=== PATIENT | female | born 1970 | race Caucasian/White ===

== ENCOUNTER 2017-11-13 23:00 | Emergency (ER) | payer MEDICAID ==
[2017-11-14] MEDS ORDERED: NORMAL SALINE 1000 ML 1,000 ML IV ONE (00:49)
[2017-11-14] MEDS ORDERED: MORPHINE SULFATE 10 MG/ML INJ IV ONE (00:49)
[2017-11-14] MEDS ORDERED: ONDANSETRON HCL INJ/PF 4 MG/2 ML SDV IV ONE (00:49)
--- NOTE | 2017-11-14 00:51 | ER Document Report ---
ED General - General Chief Complaint: Chest Pain Stated Complaint: CHEST PAIN,SHORTNESS OF BREATH,HIGH BLOOD PRESSURE Time Seen by Provider: 11/14/17 00:37 Notes: Patient is a 47-year-old female that comes emergency department for chief complaint of chest pain. She states pain started at about 5 PM tonight and has continued to worsen, it is constant, sharp, she states she has some nausea with it. She denies vomiting, she states that over the past couple of days she has had some discomfort with eating. She is also had several loose stools. She states the pain makes her feel like it is hard to breathe. She denies dizziness. Pain radiates around to her back. She denies history of the same. Past medical history includes hypertension, on metformin although she states she does not have diabetes, depression, migraines, cystectomy, , orthopedic surgery. She denies smoking, alcohol, recreational drugs. She is currently on her menstrual cycle. TRAVEL OUTSIDE OF THE [place] IN LAST 30 DAYS: No - Related Data Allergies/Adverse Reactions: aspirin Allergy (Verified 11/13/17 23:05) Past Medical History - General Information source: Patient - Social History Smoking Status: Never Smoker Frequency of alcohol use: None Drug Abuse: None Lives with: Family Family History: Reviewed & Not Pertinent - Past Medical History Cardiac Medical History: Reports: Hx Hypertension Neurological Medical History: Reports: Hx Migraine Psychiatric Medical History: Reports: Hx Depression Past Surgical History: Reports: Hx Section, Hx Cholecystectomy - Immunizations Hx Diphtheria, Pertussis, Tetanus Vaccination: Yes Review of Systems - Review of Systems Constitutional: No symptoms reported EENT: No symptoms reported Cardiovascular: See HPI Respiratory: No symptoms reported Gastrointestinal: See HPI Genitourinary: No symptoms reported Female Genitourinary: No symptoms reported Musculoskeletal: No symptoms reported Skin: No symptoms reported Hematologic/Lymphatic: No symptoms reported Neurological/Psychological: No symptoms reported Physical Exam - Vital signs Vitals: Temp Pulse Resp BP Pulse Ox 98.7 F 86 20 135/78 H 100 11/13/17 23:23 11/13/17 23:23 11/13/17 23:23 11/13/17 23:23 11/13/17 23:23 - Notes Notes: GENERAL: Alert, interacts well. Patient appears mildly uncomfortable. HEAD: Normocephalic, atraumatic. EYES: Pupils equal, round, and reactive to light. Extraocular movements intact. ENT: Oral mucosa moist, tongue midline. NECK: Full range of motion. Supple. Trachea midline. LUNGS: Clear to auscultation bilaterally, no wheezes, rales, or rhonchi. No respiratory distress. Chest nontender. HEART: Regular rate and rhythm. No murmur ABDOMEN: Epigastric tender, mild generalized upper abdominal tenderness otherwise, lower abdomen completely benign. Non-distended. Bowel sounds present in all 4 quadrants. EXTREMITIES: Moves all 4 extremities spontaneously. No edema, normal radial and dorsalis pedis pulses bilaterally. No cyanosis. BACK: no cervical, thoracic, lumbar midline tenderness. No saddle anesthesia, normal distal neurovascular exam. NEUROLOGICAL: Alert and oriented x3. Normal speech. [cranial nerves II through XII grossly intact]. PSYCH: Normal affect, normal mood. SKIN: Warm, dry, normal turgor. No rashes or lesions noted. Course - Re-evaluation Re-evalutation: Patient appears uncomfortable, when asked the location of her pain she points to her epigastric area, she has epigastric tenderness on palpation of the abdomen with wincing, remaining abdomen is benign. No shortness of breath, tachypnea, tachycardia, fever, or hypotension. EKG sinus rhythm with no T-wave inversions or ST segment changes in consecutive leads. Chest x-ray unremarkable. Troponin is not elevated. CBC unremarkable. Chemistry shows slightly low bicarbonate at 20, slightly elevated bilirubin with right bilirubin of 1, nonspecific otherwise. Lipase is not elevated. Patient given IV fluids, pain medication, nausea medication. Urine resulted, shows blood in urine, patient states this was probably contaminated with her menstrual cycle, presentation does not suggest passing stone. No CVA tenderness. On reevaluation, discussed findings with patient, decision was made to proceed with ultrasound to rule out ductal abnormality, cycle troponin. Patient given oral medication including Carafate and Pepcid as well. Ultrasound unremarkable. Troponin cycled and negative. Epigastric pain appears to be coming from gastrointestinal tract. Symptoms completely resolved after oral medications. Patient drinking fluids without any difficulty. Very low suspicion of ACS, cardiac source, PE, aortic dissection based on her evaluation and workup. Discussed treatment, follow-up, return precautions in detail with patient. Patient states understanding and agreement with plan. - Vital Signs Vital signs: Temp Pulse Resp BP Pulse Ox 98.7 F 86 18 103/53 L 98 11/13/17 23:23 11/13/17 23:23 11/14/17 04:00 11/14/17 03:01 11/14/17 04:00 - Laboratory Result Diagrams: 11/14/17 01:10 11/14/17 01:10 Laboratory results interpreted by me: 11/14/17 11/14/17 01:10 02:44 Chloride 112 H Carbon Dioxide 20 L Total Bilirubin 1.4 H Direct Bilirubin 1.0 H AST 128 H Urine Protein 100 H Urine Blood LARGE H Urine Bilirubin SMALL H Urine Urobilinogen 4.0 H Discharge - Discharge Clinical Impression: Epigastric pain Condition: Stable Disposition: HOME, SELF-CARE Additional Instructions: Your cardiac workup does not show any concerning findings. Your evaluation and symptoms are most consistent with inflammation of your upper abdominal tract. Take Carafate and Pepcid as prescribed, take pain and nausea medication only if needed, start with clear fluids, progress to bland food, avoid NSAIDs, caffeine , alcohol, smoking, spicy food. Follow-up with your primary care provider for additional management. Return if you worsen including vomiting, vomiting blood, black stools, severe pain, fever of 100.4 or greater, or any other concerning symptoms. Prescriptions: Famotidine [Pepcid 20 mg Tablet] 20 mg PO BID #20 tablet Hydrocodone/Acetaminophen [[place] 5-325 mg Tablet] 1 - 2 tab PO ASDIR #10 tablet Promethazine HCl [Phenergan 25 mg Tablet] 25 mg PO Q6H PRN #15 tablet PRN Reason: Sucralfate [Carafate 1 gm Tablet] 1 gm PO QID #20 tablet Referrals: KEILA SMALLS MD [Primary Care Provider] - Follow up as needed
[2017-11-14 01:25] LABS: ABSOLUTE BASOPHILS # (AUTO) 0.1 10^3/uL (0.0-0.2); ABSOLUTE EOSINOPHILS # (AUTO) 0.3 10^3/uL (0.0-0.6); ABSOLUTE LYMPHOCYTES (AUTO) 1.6 10^3/uL (0.5-4.7); ABSOLUTE MONOCYTES (AUTO) 0.9 10^3/uL (0.1-1.4); ABSOLUTE NEUT (AUTO) 6.4 10^3/uL (1.7-8.2); BASOPHILS % (AUTO) 0.6 % (0-2); HEMATOCRIT 41.1 % (36.0-47.0); HEMOGLOBIN 14.1 g/dL (12.0-15.5); LYMPHOCYTES % (AUTO) 17.6 % (13-45); MEAN CORPUSCULAR HEMOGLOBIN 32.4 pg (27.0-33.4); MEAN CORPUSCULAR HGB CONC 34.4 g/dL (32.0-36.0); MEAN CORPUSCULAR VOLUME 94 fl (80-97); PLATELET COUNT 236 10^3/uL (150-450); RED BLOOD COUNT 4.36 10^6/uL (3.72-5.28); RED CELL DISTRIBUTION WIDTH 12.6 % (11.5-14.0); SEGMENTED NEUTROPHILS % (AUTO) 68.8 % (42-78); TOTAL CELLS COUNTED % (AUTO) 100 %; WHITE BLOOD COUNT 9.3 10^3/uL (4.0-10.5)
[2017-11-14 01:41] LABS: ALANINE AMINOTRANSFERASE 44 U/L (9-52); ALBUMIN 3.8 g/dL (3.5-5.0); ALKALINE PHOSPHATASE 63 U/L (38-126); ANION GAP 11 (5-19); ASPARTATE AMINO TRANSFERASE 128 U/L (14-36); BILIRUBIN,TOTAL 1.4 mg/dL (0.2-1.3); BLOOD UREA NITROGEN 13 mg/dL (7-20); CALCIUM 9.4 mg/dL (8.4-10.2); CARBON DIOXIDE 20 mmol/L (22-30); CHLORIDE 112 mmol/L (98-107); CREATINE KINASE 58 U/L (30-135); GLUCOSE 109 mg/dL (75-110); LIPASE 157.5 U/L (23-300); POTASSIUM 4.1 mmol/L (3.6-5.0); SODIUM 143.3 mmol/L (137-145); TOTAL PROTEIN 6.7 g/dL (6.3-8.2)
[2017-11-14 01:58] LABS: TROPONIN I < 0.012 ng/mL
[2017-11-14] MEDS ORDERED: SUCRALFATE 1 GM TABLET PO ONE (02:07)
[2017-11-14] MEDS ORDERED: OXYCODONE HCL IR 5 MG TABLET PO ONE (02:07)
[2017-11-14] MEDS ORDERED: FAMOTIDINE 20 MG TABLET PO ONE (02:07)
--- NOTE | 2017-11-14 02:11 | RADIOLOGY REPORT (SQ) ---
EXAM DESCRIPTION: XR CHEST 1 VIEW COMPLETED DATE/TME: 11/14/2017 00:50 CLINICAL HISTORY: 47 years, Female, chest pain COMPARISON: None. NUMBER OF VIEWS: One TECHNIQUE: AP view of the chest LIMITATIONS: None. FINDINGS: The lungs are clear. The heart is normal in size. There is no pneumothorax or pleural effusion. There is no acute fracture IMPRESSION: No acute cardiopulmonary abnormality 2010 [employer]- All Rights Reserved
[2017-11-14 02:57] LABS: APPEARANCE,URINE SLIGHTLY-CLOUDY; BILIRUBIN,URINE SMALL (NEGATIVE); COLOR,URINE AMBER; GLUCOSE, URINE NEGATIVE (NEGATIVE); KETONES,URINE NEGATIVE (NEGATIVE); LEUKOCYTE ESTERASE,URINE NEGATIVE (NEGATIVE); NITRITE,URINE NEGATIVE (NEGATIVE); PROTEIN,URINE 100 mg/dL (NEGATIVE); URINE SPECIFIC GRAVITY 1.031
--- NOTE | 2017-11-14 03:43 | RADIOLOGY REPORT (SQ) ---
EXAM DESCRIPTION: US ABDOMEN LIMITED COMPLETED DATE/TME: 11/14/2017 01:52 CLINICAL HISTORY: 47 years Female, sharp upper abd pain; eval ducts Comparison: None. LIMITATIONS: None. FINDINGS: Cholecystectomy, mild hepatic steatosis, a 0.6-cm diameter common bile duct, no intrahepatic ductal dilation, 10-cm right kidney, partially obscured pancreas, visualized vasculature/abdominal aorta, and no significant ascites appear otherwise unremarkable. IMPRESSION: No acute findings. Cholecystectomy. Hepatic steatosis.
[2017-11-14 04:35] VITALS: BP 103/53
--- NOTE | 2017-11-14 07:26 | EKG REPORT ---
SEVERITY:- NORMAL ECG - SINUS RHYTHM : Confirmed by: Cosmo Shaver MD 14-Nov-2017 07:25:29
== END 2017-11-14 04:42 | disposition home or self-care (01) ==
LOC: ER 23:00
DX: R10.13 Epigastric pain (principal); R07.9 Chest pain, unspecified; R11.0 Nausea; R19.7 Diarrhea, unspecified; M54.9 Dorsalgia, unspecified; I10 Essential (primary) hypertension
CPT/HCPCS: 93005; 99285; 96361; 96374; 96375; 36415; 82553; 82550; 83690; 84703; 85025; 80053; 81001; 84484; 71045; 76705; 93010; J3490 ×3; J2270; J2405; J7030

== ENCOUNTER → 2018-09-17 | Outpatient (CLI) | payer OTHER ==
[2018-09-17 15:21] LABS: ABSOLUTE EOSINOPHILS # (AUTO) 0.2 10^3/uL (0.0-0.6); ABSOLUTE MONOCYTES (AUTO) 0.4 10^3/uL (0.1-1.4); HEMOGLOBIN 13.2 g/dL (12.0-15.5); MEAN CORPUSCULAR HEMOGLOBIN 31.8 pg (27.0-33.4); MONOCYTES % (AUTO) 8.2 % (3-13); TOTAL CELLS COUNTED % (AUTO) 100 %
[2018-09-17 15:28] LABS: ABSOLUTE BASOPHILS # (AUTO) 0.1 10^3/uL (0.0-0.2); ABSOLUTE LYMPHOCYTES (AUTO) 1.4 10^3/uL (0.5-4.7); ABSOLUTE NEUT (AUTO) 2.7 10^3/uL (1.7-8.2); EOSINOPHILS % (AUTO) 4.9 % (0-6); HEMATOCRIT 38.1 % (36.0-47.0); LYMPHOCYTES % (AUTO) 29.6 % (13-45); MEAN CORPUSCULAR HGB CONC 34.7 g/dL (32.0-36.0); MEAN CORPUSCULAR VOLUME 92 fl (80-97); PLATELET COUNT 234 10^3/uL (150-450); RED BLOOD COUNT 4.16 10^6/uL (3.72-5.28); RED CELL DISTRIBUTION WIDTH 12.2 % (11.5-14.0); SEGMENTED NEUTROPHILS % (AUTO) 56.3 % (42-78); WHITE BLOOD COUNT 4.9 10^3/uL (4.0-10.5)
[2018-09-17 15:44] LABS: ALANINE AMINOTRANSFERASE 26 U/L (9-52); ALBUMIN 3.8 g/dL (3.5-5.0); ALKALINE PHOSPHATASE 59 U/L (38-126); ANION GAP 6 (5-19); ASPARTATE AMINO TRANSFERASE 19 U/L (14-36); BILIRUBIN,DIRECT 0.2 mg/dL (0.0-0.4); BILIRUBIN,TOTAL 0.4 mg/dL (0.2-1.3); BLOOD UREA NITROGEN 16 mg/dL (7-20); CALCIUM 9.9 mg/dL (8.4-10.2); CARBON DIOXIDE 24 mmol/L (22-30); CHLORIDE 112 mmol/L (98-107); CHOLESTEROL 176.61 mg/dL (0-200); GLUCOSE 86 mg/dL (75-110); POTASSIUM 4.3 mmol/L (3.6-5.0); SODIUM 142.1 mmol/L (137-145); TRIGLYCERIDES 95 mg/dL (<150)
[2018-09-17 15:55] LABS: DIRECT LDL 104 mg/dL (<100)
== END ==
LOC: CCC 14:11
DX: I10 Essential (primary) hypertension (principal); E03.9 Hypothyroidism, unspecified; F41.9 Anxiety disorder, unspecified
CPT/HCPCS: 36415; 80053; 80061; 83036; 84443; 85025

== ENCOUNTER → 2018-10-07 | Outpatient (CLI) | payer OTHER ==
--- NOTE | 2018-10-07 13:05 | RADIOLOGY REPORT (SQ) ---
EXAM DESCRIPTION: SHOULDER BILAT 2 OR MORE VIEWS COMPLETED DATE/TIME: 10/07/2018 12:56 pm REASON FOR STUDY: BILAT SHOULDER PAIN W/ LIMITED MOTION COMPARISON: None. NUMBER OF VIEWS: Three views. TECHNIQUE: Internal rotation, external rotation, and Y view images acquired of the right and left sh oulder. LIMITATIONS: None. FINDINGS: MINERALIZATION: Normal. BONES: No acute fracture . No worrisome bone lesions. No significant osteophytes. GLENOHUMERAL JOINT: No significant findings. ACROMIOCLAVICULAR JOINT: No large osteophytes. SOFT TISSUES: No calcifications. VISUALIZED RIBS, SPINE, AND LUNG: No other significant finding. OTHER: No other significant finding. IMPRESSION: NEGATIVE STUDY OF THE RIGHT AND LEFT SHOULDERS. NO RADIOGRAPHIC EVIDENCE OF ACUTE INJURY . NO EXPLANATION FOR PAIN. TECHNICAL DOCUMENTATION: JOB ID: [id number] [employer]- All Rights Reserved Reading location - IP/workstation name: [email or web address]
== END ==
LOC: OD 12:21
DX: M25.512 Pain in left shoulder (principal); M25.511 Pain in right shoulder

== ENCOUNTER 2018-11-21 13:52 | Emergency (ER) | payer OTHER ==
--- NOTE | 2018-11-21 14:35 | ER Document Report ---
ED Medical Screen (RME) - General Chief Complaint: Pain All Over Stated Complaint: ARM/BACK PAIN Time Seen by Provider: 11/21/18 14:31 Primary Care Provider: POLINA ZHAO [Primary Care Provider] - Follow up as needed Mode of Arrival: Ambulatory Information source: Patient Notes: 48-year-old female presented to ED for complaint of increasing pain to both legs both shoulders both wrist right groin and low back. She states the worst pain is in her right groin and her low back. She states she was told she had arthritis and was given prednisone a couple months ago and it helped for couple days and he told her that he could not give a 2 on a regular basis as it would make her bones more brittle. She states she knows that she does not want to do that and make things worse. She just wants to know if there is arthritis in the hip and low back area that is now so painful. I have greeted and performed a rapid initial assessment of this patient. A comprehensive ED assessment and evaluation of the patient, analysis of test results and completion of medical decision making process will be conducted by an additional ED providers. TRAVEL OUTSIDE OF THE [place] IN LAST 30 DAYS: No - Related Data Allergies/Adverse Reactions: aspirin Allergy (Verified 11/21/18 13:59) Past Medical History - Social History Chew tobacco use (# tins/day): No Frequency of alcohol use: None Drug Abuse: None - Past Medical History Cardiac Medical History: Reports: Hx Hypertension Neurological Medical History: Reports: Hx Migraine Renal/ Medical History: Denies: Hx Peritoneal Dialysis Psychiatric Medical History: Reports: Hx Depression Past Surgical History: Reports: Hx Section, Hx Cholecystectomy - Immunizations Hx Diphtheria, Pertussis, Tetanus Vaccination: Yes Physical Exam - Vital signs Vitals: Temp Pulse Resp BP Pulse Ox 98.4 F 89 16 115/62 98 11/21/18 14:05 11/21/18 14:05 11/21/18 14:05 11/21/18 14:05 11/21/18 14:05 Course - Vital Signs Vital signs: Temp Pulse Resp BP Pulse Ox 98.4 F 89 16 115/62 98 11/21/18 14:05 11/21/18 14:05 11/21/18 14:05 11/21/18 14:05 11/21/18 14:05 Doctor's Discharge - Discharge [facility]errals: [facility] [Primary [facility] Provider] - Follow up as needed
[2018-11-21 15:15] LABS: APPEARANCE,URINE SLIGHTLY-CLOUDY; BILIRUBIN,URINE NEGATIVE (NEGATIVE); COLOR,URINE YELLOW; GLUCOSE, URINE NEGATIVE (NEGATIVE); KETONES,URINE NEGATIVE (NEGATIVE); LEUKOCYTE ESTERASE,URINE LARGE (NEGATIVE); NITRITE,URINE NEGATIVE (NEGATIVE); PROTEIN,URINE NEGATIVE (NEGATIVE); URINE SPECIFIC GRAVITY 1.018; UROBILINOGEN,URINE NEGATIVE mg/dL (<2.0)
--- NOTE | 2018-11-21 15:19 | RADIOLOGY REPORT (SQ) ---
EXAM DESCRIPTION: HIP RIGHT AP/LATERAL COMPLETED DATE/TIME: 11/21/2018 3:09 pm REASON FOR STUDY: Right groin and low back pain increasing COMPARISON: None. NUMBER OF VIEWS: Two views. TECHNIQUE: AP and frog-leg view of the right hip. LIMITATIONS: None. FINDINGS: MINERALIZATION: Normal. RIGHT HIP: There is asymmetric joint space narrowing. There is subchondral sclerosis. OPPOSITE HIP: No fracture or dislocation. No worrisome bone lesions. SOFT TISSUES: Multiple small calcifications. Etiology of these is uncertain. OTHER: No other significant finding. IMPRESSION: Asymmetric degenerative changes in the right hip. No acute fracture or dislocation. TECHNICAL DOCUMENTATION: JOB ID: [id number] [employer]- All Rights Reserved Reading location - IP/workstation name: [email or web address]
--- NOTE | 2018-11-21 15:20 | RADIOLOGY REPORT (SQ) ---
EXAM DESCRIPTION: L SPINE WHOLE COMPLETED DATE/TIME: 11/21/2018 3:09 pm REASON FOR STUDY: Right groin and low back pain increasing COMPARISON: None. NUMBER OF VIEWS: Three views. TECHNIQUE: AP, lateral and sacral radiographic images acquired of the lumbar spine. LIMITATIONS: None. FINDINGS: MINERALIZATION: Normal. SEGMENTATION: Normal. No transitional anatomy. ALIGNMENT: Normal. VERTEBRAE: Maintained height. No fracture or worrisome bone lesion. DISCS: Mild disc space narrowing at L5-S1. Small anterior osteophytes at L4 and L5. POSTERIOR ELEMENTS: Pedicles and facets are intact. No pars defect or posterior arch defects. HARDWARE: None in the spine. PARASPINAL SOFT TISSUES: Normal. PELVIS: Intact as visualized. No fractures or worrisome bone lesions. SI joints intact. OTHER: No other significant finding. IMPRESSION: Mild degenerative changes most marked at L5-S1. No acute findings. TECHNICAL DOCUMENTATION: JOB ID: [id number] [employer]- All Rights Reserved Reading location - IP/workstation name: [email or web address]
--- NOTE | 2018-11-21 17:37 | ER Document Report ---
ED General Pain - General Chief Complaint: Pain All Over Stated Complaint: ARM/BACK PAIN Time Seen by Provider: 11/21/18 14:31 Primary Care Provider: [facility] [Primary Care Provider] - Follow up as needed Mode of Arrival: Ambulatory Notes: ISABELLA NOTE: 48-year-old female presented to ED for complaint of increasing pain to both legs both shoulders both wrist right groin and low back. She states the worst pain is in her right groin and her low back. She states she was told she had arthritis and was given prednisone a couple months ago and it helped for couple days and he told her that he could not give a 2 on a regular basis as it would make her bones more brittle. She states she knows that she does not want to do that and make things worse. She just wants to know if there is arthritis in the hip and low back area that is now so painful. MY HPI: Patient states she has had this generalized chronic pain for the last couple of months. Patient states she was told that she has arthritis. States she was told by an orthopedic she needed to go to physical therapy but she did not go because she lost insurance. States [facility] did give her prednisone which helped for short amount of time and then placed her on tramadol. Patient states she read that tramadol can be addictive so she has not been taking it. Patient does not want narcotic medications she just is unsure what to do because of her general arthritis pain. Patient states the reason she presents to the emergency department today despite the pain going on for months is that she has an autistic son and her son is currently at a staple processing machine operator. States she was able to come to the doctor because she did not have to take care of her son. Patient's denying any change in her pain any increase or decrease. Patient states she has been taking Tylenol intermittently which typically does help a little bit. Patient's denying any urinary retention, loss of bowel or bladder. TRAVEL OUTSIDE OF THE [place] IN LAST 30 DAYS: No - Related Data Allergies/Adverse Reactions: aspirin Allergy (Verified 11/21/18 13:59) Past Medical History - General Information source: Patient - Social History Smoking Status: Never Smoker Chew tobacco use (# tins/day): No Frequency of alcohol use: None Drug Abuse: None Family History: Reviewed & Not Pertinent Patient has suicidal ideation: No Patient has homicidal ideation: No - Past Medical History Cardiac Medical History: Reports: Hx Hypertension Neurological Medical History: Reports: Hx Migraine Renal/ Medical History: Denies: Hx Peritoneal Dialysis Psychiatric Medical History: Reports: Hx Depression Past Surgical History: Reports: Hx Section, Hx Cholecystectomy, Hx Orthopedic Surgery - rods- right leg - Immunizations Hx Diphtheria, Pertussis, Tetanus Vaccination: Yes Review of Systems - Review of Systems Constitutional: denies: Fever EENT: No symptoms reported Cardiovascular: No symptoms reported Respiratory: No symptoms reported Gastrointestinal: No symptoms reported Genitourinary: No symptoms reported Female Genitourinary: No symptoms reported Musculoskeletal: See HPI Skin: No symptoms reported Hematologic/Lymphatic: No symptoms reported Neurological/Psychological: No symptoms reported Physical Exam - Vital signs Vitals: Temp Pulse Resp BP Pulse Ox 98.4 F 89 16 115/62 98 11/21/18 14:05 11/21/18 14:05 11/21/18 14:05 11/21/18 14:05 11/21/18 14:05 - Notes Notes: GENERAL: Alert, interacts well. No acute distress. HEAD: Normocephalic, atraumatic. EYES: Pupils equal, round, and reactive to light. Extraocular movements intact. ENT: Oral mucosa moist, tongue midline. NECK: Full range of motion. Supple. Trachea midline. LUNGS: Clear to auscultation bilaterally, no wheezes, rales, or rhonchi. No respiratory distress. HEART: Regular rate and rhythm. No murmur ABDOMEN: Soft, non-tender. Non-distended. Bowel sounds present in all 4 quadrants. EXTREMITIES: Moves all 4 extremities spontaneously. No edema, normal radial and dorsalis pedis pulses bilaterally. No cyanosis. 5 out of 5 strength noted all 4 extremities. BACK: no cervical, thoracic, lumbar midline tenderness. No saddle anesthesia, normal distal neurovascular exam. NEUROLOGICAL: Alert and oriented x3. Normal speech. cranial nerves II through XII grossly intact. PSYCH: Normal affect, normal mood. SKIN: Warm, dry, normal turgor. No rashes or lesions noted. Course - Re-evaluation Re-evalutation: 11/21/18 17:36 Patient presents to the emergency department with chronic generalized body pain. Initially patient states "I hurt from my neck down." Patient's denying any change or increase in this pain. States she does not want narcotics because she does not want to be addicted. I discussed the use of naproxen with her at length. I have also discussed following up at [facility] or [facility]. I have discussed physical therapy as well. Patient voices that she may be okay with paying [id number] to see these providers as she just has generalized arthritis pain. Patient's neurological exam is completely benign. At this time will discharge with return precautions and follow-up recommendations. Verbal discharge instructions given a the bedside and opportunity for questions given. Medication warnings reviewed. Patient is in agreement with this plan and has verbalized understanding of return precautions and the need for primary care follow-up in the next 24-72 hours. This medical record was dictated with voice recognizing software. There may be grammatical, syntax errors that are unintended. - Vital Signs Vital signs: Temp Pulse Resp BP Pulse Ox 98.5 F 86 16 116/70 99 11/21/18 17:20 11/21/18 17:20 11/21/18 17:20 11/21/18 17:20 11/21/18 17:20 - Laboratory Laboratory results interpreted by me: 11/21/18 14:48 Ur Leukocyte Esterase LARGE H Discharge - Discharge Clinical Impression: Arthritis Condition: Stable Disposition: HOME, SELF-CARE Instructions: Arthritis ([facility]) Additional Instructions: As we discussed you have been seen and treated in the emergency department for your generalized body pain. You should take medications as prescribed, please follow-up at [facility] or [facility]. Please return to the emergency room for any further concerns. Prescriptions: Naproxen 500 mg PO BID #20 tablet Ref[facility]: [facility] [Primary Care Provider] - Follow up as needed [facility] [Provider Group] - Follow up as needed
[2018-11-21] MEDS ORDERED: NAPROXEN 250 MG TABLET PO ONE (17:38)
[2018-11-21 17:43] VITALS: BP 135/80
== END 2018-11-21 17:47 | disposition home or self-care (01) ==
LOC: ER 13:52
DX: M19.90 Unspecified osteoarthritis, unspecified site (principal); M79.604 Pain in right leg; M79.605 Pain in left leg; M25.511 Pain in right shoulder; M25.512 Pain in left shoulder; M25.531 Pain in right wrist; M25.532 Pain in left wrist; R10.31 Right lower quadrant pain; M54.5 Low back pain; G89.29 Other chronic pain; I10 Essential (primary) hypertension
CPT/HCPCS: 72110; 81001; 87086; 87088; 99284

== ENCOUNTER → 2019-01-16 | Outpatient (CLI) | payer OTHER ==
--- NOTE | 2019-01-17 11:13 | RADIOLOGY REPORT (SQ) ---
EXAM DESCRIPTION: MRI LT UPPER JOINT WITHOUT COMPLETED DATE/TIME: 01/16/2019 12:54 pm REASON FOR STUDY: UNSP ROTATR-CUFF TEAR/RUPTR OF RIGHT SHOULDER, NOT TRAUMA (M75.101) M75.101 UNSP ROTATR-CUFF TEAR/RUPTR OF RIGHT SHOULDER, NOT T COMPARISON: Radiographs from September. TECHNIQUE: Left shoulder images acquired and stored on PACS. Multiplanar imaging to include fat sens itive sequences such as T1, water sensitive sequences such as FST2/STIR, cartilage sensitive sequence s such as FSPD/gradient-echo sequences. LIMITATIONS: Habitus. Motion artifact. FINDINGS: BONE MARROW AND CORTEX: Normal. JOINT OR BURSAL EFFUSION: No significant fluid. GLENO-HUMERAL ARTICULATION: No overt subluxation or dislocation. Limited evaluation of the chondral surface but no suggestion of large cysts or erosions in the adjacent bone. ACROMION AND AC JOINT: No bulky overgrowth or significant widening. ROTATOR CUFF AND INTERVAL: Tendinosis without suggestion of full-thickness tear. LABRUM AND BICEPS LABRAL COMPLEX: Due to limitations above, labrum is poorly assessed. No gross bi ceps disruption. REMAINDER OF LABRUM AND IGHL : Limited assessment. No secondary signs of labral tear. PERIARTICULAR AND ADJACENT SOFT TISSUES: No masses or abnormal nodes. OTHER: No other significant finding. IMPRESSION: 1. Limited study. 2. No evidence of high-grade cuff tear. Mild cuff tendinosis. TECHNICAL DOCUMENTATION: JOB ID: [id number] [email or web address]- All Rights Reserved Reading location - IP/workstation name: [email or web address]
== END ==
LOC: RAD 12:04
PROVIDERS: ATTEND Family Medicine
DX: M75.101 Unspecified rotator cuff tear or rupture of right shoulder, not specified as traumatic (principal)

== ENCOUNTER 2019-01-24 16:54 | Emergency (ER) | payer OTHER ==
[2019-01-24 17:00] VITALS: BP 150/83
--- NOTE | 2019-01-24 17:12 | ER Document Report ---
ED Medical Screen (RME) - General Chief Complaint: Arm Pain Stated Complaint: SHOULDER/ARM PAIN Time Seen by Provider: 01/24/19 17:09 Primary Care Provider: MAL MACHADO MD [Primary Care Provider] - Follow up as needed Mode of Arrival: Ambulatory Information source: Patient Notes: Patient presents complaining of left upper extremity pain for the past 9 months. Patient has seen her primary doctor about this as well as orthopedics and was told she had arthritis. Patient had her primary doctor order her MRI of the shoulder joint. Patient has an appointment with him in 2 days but felt like she could not move her shoulder today due to the pain. Patient denies any new injury. Patient states that pain radiates down the entire left upper extremity and into her fingers. I have greeted and performed a rapid initial assessment of this patient. A comprehensive ED assessment and evaluation of the patient, analysis of test results and completion of the medical decision making process will be conducted by additional ED providers. TRAVEL OUTSIDE OF THE [place] IN LAST 30 DAYS: No - Related Data Allergies/Adverse Reactions: aspirin Allergy (Verified 01/24/19 17:01) Past Medical History - Social History Chew tobacco use (# tins/day): No Drug Abuse: None - Past Medical History Cardiac Medical History: Reports: Hx Hypertension Neurological Medical History: Reports: Hx Migraine Renal/ Medical History: Denies: Hx Peritoneal Dialysis Psychiatric Medical History: Reports: Hx Depression Past Surgical History: Reports: Hx Section, Hx Cholecystectomy, Hx Orthopedic Surgery - rods- right leg - Immunizations Hx Diphtheria, Pertussis, Tetanus Vaccination: Yes Physical Exam - Vital signs Vitals: Temp Pulse Resp BP Pulse Ox 97.8 F 97 16 150/83 H 98 01/24/19 16:59 01/24/19 16:59 01/24/19 16:59 01/24/19 16:59 01/24/19 16:59 - General General appearance: Alert, Anxious Notes: Left upper extremity tenderness, tenderness to left trapezius area, no cervical midline tenderness Course - Vital Signs Vital signs: Temp Pulse Resp BP Pulse Ox 97.8 F 97 16 150/83 H 98 01/24/19 16:59 01/24/19 16:59 01/24/19 16:59 01/24/19 16:59 01/24/19 16:59 Doctor's Discharge - Discharge Referrals: MAL MACHADO MD [Primary Care Provider] - Follow up as needed
--- NOTE | 2019-01-24 17:50 | RADIOLOGY REPORT (SQ) ---
EXAM DESCRIPTION: CERV SP 4 OR 5 VIEWS COMPLETED DATE/TIME: 01/24/2019 5:32 pm REASON FOR STUDY: LUE pain COMPARISON: None. NUMBER OF VIEWS: Five views. TECHNIQUE: AP, lateral, obliques and odontoid radiographic images acquired of the cervical spine. LIMITATIONS: None. FINDINGS: MINERALIZATION: Normal. ALIGNMENT: Anatomic. VERTEBRAE: Vertebral bodies of normal height. DISCS: There is multilevel disc degenerative disease and osteophytosis, severe from C5 through C7. FORAMINA: No osteophytes or foraminal narrowing. LATERAL AND POSTERIOR ELEMENTS: Facets, lateral masses and spinous processes without significant find ings. HARDWARE: None in the spine. SOFT TISSUES: No masses or calcifications. Lung apices clear. OTHER: No other significant finding. IMPRESSION: No fracture or static subluxation of the cervical spine. Multilevel disc degenerative d isease and osteophytosis, severe from C5 through C7. Cervical disc and neural foraminal pathology ma y be further evaluated by MRI if indicated by localizing signs and symptoms. TECHNICAL DOCUMENTATION: JOB ID: [id number] [employer]- All Rights Reserved Reading location - IP/workstation name: [email or web address]
[2019-01-24] MEDS ORDERED: KETOROLAC TROMETHAMINE 60 MG/2 ML SDV IM ONE (18:42)
[2019-01-24] MEDS ORDERED: MORPHINE SULFATE 10 MG/ML INJ ONE (18:45)
--- NOTE | 2019-01-24 18:49 | ER Document Report ---
HPI - HPI Time Seen by Provider: 01/24/19 17:09 Pain Level: 4 Context: Patient is a 48-year-old female who presents to the emergency department with chief complaint of left upper arm pain. Patient reports she has had left shoulder and upper arm pain present for about 9 months. Patient reports she did have an MRI of the left shoulder here last week and is supposed to follow-up with her primary care physician this upcoming Saturday for the results. Patient reports the only thing that has helped her in the past was a dose of steroids. Patient states she does have left hand numbness and tingling but that this is chronic and has been ongoing for 9 months. Patient reports the left shoulder pain does radiate all the way down into her left hand. Patient denies original injury. Patient states she was told she could potentially could have a rotator cuff injury. Patient states she has not been taking anything specifically for pain. Patient states this week and the pain just got worse. - REPRODUCTIVE Reproductive: DENIES: : Past Medical History - General Information source: Patient - Social History Smoking Status: Never Smoker Chew tobacco use (# tins/day): No Drug Abuse: None Lives with: Family Family History: Reviewed & Not Pertinent Patient has suicidal ideation: No Patient has homicidal ideation: No - Past Medical History Cardiac Medical History: Reports: Hx Hypertension Pulmonary Medical History: Reports: None EENT Medical History: Reports: None Neurological Medical History: Reports: Hx Migraine Endocrine Medical History: Reports: None Renal/ Medical History: Reports: None. Denies: Hx Peritoneal Dialysis Malignancy Medical History: Reports: None GI Medical History: Reports: None Musculoskeletal Medical History: Reports None Skin Medical History: Reports None Psychiatric Medical History: Reports: Hx Depression Traumatic Medical History: Reports: None Infectious Medical History: Reports: None Past Surgical History: Reports: Hx Section, Hx Cholecystectomy, Hx Orthopedic Surgery - rods- right leg - Immunizations Hx Diphtheria, Pertussis, Tetanus Vaccination: Yes Vertical Provider Document - CONSTITUTIONAL Agree With Documented VS: Yes Exam Limitations: No Limitations General Appearance: No Apparent Distress - INFECTION CONTROL TRAVEL OUTSIDE OF THE [place] IN LAST 30 DAYS: No - HEENT HEENT: Atraumatic, Normocephalic, PERRLA - NECK Neck: Normal Inspection Notes: No cervical midline tenderness. - RESPIRATORY Respiratory: Breath Sounds Normal, No Respiratory Distress - CARDIOVASCULAR Cardiovascular: Regular Rate, Regular Rhythm - GI/ABDOMEN Gastrointestinal: Abdomen Soft, Abdomen Non-Tender - MUSCULOSKELETAL/EXTREMETIES Notes: Patient has limited range of motion to the left shoulder. Patient unable to externally or internally rotate. Patient unable to lift her arm above her shoulder. Patient does have significant tenderness with palpation to the anterior and lateral aspect of the shoulder. There is no obvious edema, ecchymosis or erythema. Patient does have a palpable radial and brachial pulse +2. 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 - NEURO Level of Consciousness: Awake, Alert, Appropriate Course - Re-evaluation Re-evalutation: 01/24/19 19:02 We will give patient a dose of Toradol. Patient reports she has taken Toradol for her migraine headaches before and is tolerated that okay. I did inform the patient this is an anti-inflammatory. We will also prescribe her a steroid Dosepak. I did inform the patient that ultimately she needs to follow-up with orthopedics after she does get her results of her MRI on Saturday. I did review the results which did not show an acute tear of the rotator cuff but it did show tenodesis. Patient to return if her symptoms worsen or change. - Vital Signs Vital signs: Temp Pulse Resp BP Pulse Ox 97.8 F 97 16 150/83 H 98 01/24/19 16:59 01/24/19 16:59 01/24/19 16:59 01/24/19 16:59 01/24/19 16:59 - Diagnostic Test Radiology reviewed: Reports reviewed Radiology results interpreted by me: 01/24/19 18:47 Cervical Spine X-Ray 01/24/19 17:10 IMPRESSION: No fracture or static subluxation of the cervical spine. Multilevel disc degenerative disease and osteophytosis, severe from C5 through C7. Cervical disc and neural foraminal pathology may be further evaluated by MRI if indicated by localizing signs and symptoms. Discharge - Discharge Clinical Impression: Chronic left shoulder pain Condition: Stable Disposition: HOME, SELF-CARE Additional Instructions: Today you are seen in the emergency department for left shoulder pain. We did obtain an x-ray of your neck which did show degenerative changes and the cervical spine. Please follow-up with your primary care physician on Saturday so you can review the MRI of your shoulder that you have last week. I am giving you a steroid Dosepak to help with the inflammation, as well as Toradol which is an anti-inflammatory. Please return the emergency department if you have any worsening signs or symptoms. Ultimately you may need to follow-up with orthopedics. Have your primary care physician place a referral and see you can go see [facility]. Shoulder Injury You have injured your shoulder. This usually results from stretching or tearing of the tendons during trauma. Time and protection are required in order to heal properly. Many injuries are quite disabling, and should be taken seriously. Initial treatment includes cold packs and a sling to rest the shoulder. The physician has assessed the seriousness of your injury, and has outlined a treatment plan. Understand that this treatment may change, depending on how you progress. If a re-examination was recommended, it is important that you follow up as instructed. Some shoulder injuries (such as partial tear of the rotator cuff) are only suspected after you've failed to improve. Call us if there's severe pain, numbness, or loss of function. Prescriptions: Ketorolac Tromethamine [Toradol 10 mg Tablet] 10 mg PO Q8HP PRN #12 tablet PRN Reason: Prednisone [Deltasone 10 mg Tablet] 10 mg PO ASDIR PRN #21 tablet PRN Reason: Referrals: MAL MACHADO MD [Primary Care Provider] - Follow up as needed
== END 2019-01-24 19:10 | disposition home or self-care (01) ==
LOC: ER 16:54
DX: M25.512 Pain in left shoulder (principal); G89.29 Other chronic pain; M79.602 Pain in left arm; R20.0 Anesthesia of skin; M79.642 Pain in left hand; I10 Essential (primary) hypertension
CPT/HCPCS: 72050; J1885; 96374; 99283

== ENCOUNTER → 2019-02-13 | Outpatient (CLI) | payer OTHER ==
--- NOTE | 2019-02-13 19:48 | RADIOLOGY REPORT (SQ) ---
EXAM DESCRIPTION: MRI CERVICAL SPINE WITHOUT COMPLETED DATE/TIME: 02/13/2019 6:37 pm REASON FOR STUDY: M50.90 CERVICAL DISC DISORDER, UNSP, UNSPECIFIED CERVICAL REGION M50.90 CERVICAL DISC DISORDER, UNSP, UNSPECIFIED CERVICAL RE COMPARISON: CERVICAL SPINE PLAIN FILMS 01/24/2019 TECHNIQUE: Sagittal and Axial imaging includes T1, T2, STIR and gradient echo sequences. LIMITATIONS: None. FINDINGS: ALIGNMENT: Straightening of cervical lordosis VERTEBRAE: Intact. BONE MARROW: Normal. No marrow replacement or reactive changes. DISCS: Diffuse decreased T2 weighted intervertebral disc signal HARDWARE: None in the spine. CORD AND BASE OF BRAIN: Normal in size and signal intensity. SOFT TISSUES: No soft tissue masses. Bilateral carotid bifurcations are in the prevertebral space C1-C2: No significant spinal stenosis. C2-C3: No significant spinal stenosis or exit foraminal stenosis. C3-C4: Mild posterior disc bulging is present with tiny central disc protrusion. This partly effaces the ventral thecal sac without significant central canal or foraminal stenosis. C4-C5: Broad diffuse posterior disc bulging with a small central protrusion is present. This effaces the ventral thecal sac and abuts the ventral cord with minimal ventral cord flattening but no abnorm al intrinsic signal. Mild central canal narrowing best shown on axial series 7, image 56. No signif icant foraminal narrowing C5-C6: Broad diffuse posterior disc bulge right greater than left effaces the ventral thecal sac and abuts the ventral cord with mild ventral cord flattening. Mild central canal stenosis. No abnormal intrinsic cord signal. Findings are best shown on axial series 7 image 71. No significant foraminal narrowing C6-C7: Mild diffuse posterior disc bulging is present partly effacing the ventral thecal sac and abut ting the ventral cord without cord flattening or abnormal intrinsic cord signal. Borderline central canal narrowing. No significant foraminal narrowing C7-T1: Minimal posterior disc bulging. No central or foraminal stenosis UPPER THORACIC: Incompletely imaged. No significant spinal stenosis or exit foraminal stenosis. OTHER: No other significant finding. IMPRESSION: Multilevel posterior disc bulging causing mild central canal narrowing as above TECHNICAL DOCUMENTATION: JOB ID: [id number] [employer]- All Rights Reserved Reading location - IP/workstation name: [email or web address]
== END ==
LOC: RAD 17:50
PROVIDERS: ATTEND Family Medicine
DX: M50.823 Other cervical disc disorders at C6-C7 level (principal)
CPT/HCPCS: 72141

== ENCOUNTER 2019-03-28 12:27 | Emergency (ER) | payer OTHER ==
[2019-03-28 12:52] VITALS: BP 144/73
[2019-03-28] MEDS ORDERED: KETOROLAC TROMETHAMINE 60 MG/2 ML SDV IM ONE (13:30)
--- NOTE | 2019-03-28 13:34 | ER Document Report ---
HPI - HPI Time Seen by Provider: 03/28/19 13:25 Pain Level: 4 Notes: Patient is a 48-year-old female with history of chronic neck pain with disc bulging and is scheduled to see a specialist in May who presents complaining of acute exacerbation of her pain over the last several days. Patient states that her family doctor is out of town. Patient states that her pain is mostly on the left side, but has started radiating to the right side as well. Patient states that prednisone usually works really well for her. Denies drug allergies. No other concerns or complaints. Her family doctor is out of town which is why she is here today. Denies any headache, fever, head injury, changes in vision/speech/mentation/hearing, URI, sore throat, chest pain, palpitations, syncope, cough, shortness of breath, wheeze, dyspnea, abdominal pain, nausea/vomiting/diarrhea, urinary retention, dysuria, hematuria, loss of control of bowel or bladder, numbness/tingling, saddle anesthesia, muscle paralysis/weakness, or rash. - ROS Systems Reviewed and Negative: Yes All other systems reviewed and negative - REPRODUCTIVE Reproductive: DENIES: : Past Medical History - Social History Smoking Status: Never Smoker Chew tobacco use (# tins/day): No Drug Abuse: None Family History: Reviewed & Not Pertinent Patient has suicidal ideation: No Patient has homicidal ideation: No - Past Medical History Cardiac Medical History: Reports: Hx Hypertension Neurological Medical History: Reports: Hx Migraine Renal/ Medical History: Denies: Hx Peritoneal Dialysis Psychiatric Medical History: Reports: Hx Depression Past Surgical History: Reports: Hx Section, Hx Cholecystectomy, Hx Orthopedic Surgery - rods- right leg - Immunizations Hx Diphtheria, Pertussis, Tetanus Vaccination: Yes Vertical Provider Document - CONSTITUTIONAL Agree With Documented VS: Yes Notes: PHYSICAL EXAMINATION: GENERAL: Well-appearing, well-nourished and in no acute distress. NECK: Normal range of motion, supple without lymphadenopathy. Non-tender. Spurling negative. No rigidity/meningismus. + C paraspinal muscle tenderness palpation with mild spasming. LUNGS: Breath sounds clear to auscultation bilaterally and equal. No wheezes rales or rhonchi. HEART: Regular rate and rhythm without murmurs, rubs, gallops. Musculoskeletal: Lt shoulder: FROM to passive/active. Strength 5+/5 due to pain. Neg speed test. No crepitus. No erythema or warmth. No deformity or ecchymosis. RC intact 5+/5 strength. Extremities: No cyanosis, clubbing, or edema b/l. Peripheral pulses 2+. Capillary refill less than 3 seconds. NEUROLOGICAL: Normal speech, normal gait. Normal sensory, motor exams PSYCH: Normal mood, normal affect. SKIN: Warm, Dry, normal turgor, no rashes or lesions noted. - INFECTION CONTROL TRAVEL OUTSIDE OF THE [place] IN LAST 30 DAYS: No Course - Re-evaluation Re-evalutation: 03/28/19 13:32 Patient is an afebrile, well-hydrated, 48yo female who presents to the ED with acute on chronic neck pain. Vitals are acceptable. PE is otherwise unremarkable for any focal neurological deficits. Patient had a recent MRI performed that showed mild stenosis. Patient was given Toradol. She has no significant tachycardia, tachypnea, or hypoxia. She is nontoxic-appearing and is tolerating p.o. without difficulties. There are no signs of infection. No other red flag symptoms noted. No other labs or imaging warranted at this time based on H&P. Low suspicion for any meningitis, fracture, expanding/ruptured AAA, cauda equina syndrome, epidural mass lesion/abscess, herniated disc causing severe spinal stenosis, or other systemic infection at this time. Patient is aware that this condition can change from initial presentation and that she needs monitor symptoms closely for any acute changes. I will send her home with a prescription for prednisone. Conservative measures otherwise for symptoms. Recheck with your PCM in 3-5 days. Consult with a specialist. Return to the ED with any worsening/concerning symptoms otherwise as reviewed discharge. Patient is in agreement. - Vital Signs Vital signs: Temp Pulse Resp BP Pulse Ox 98.3 F 91 18 144/73 H 97 03/28/19 12:51 03/28/19 12:51 03/28/19 12:51 03/28/19 12:51 03/28/19 12:51 Discharge - Discharge Clinical Impression: Neck pain Condition: Stable Disposition: HOME, SELF-CARE Additional Instructions: Rest, Ice Tylenol/ibuprofen as needed Light stretches daily Strength exercises as able Moist heat and massage may help F/u with your PCP in 3-5 days for a recheck Keep consult with specialist Return to the ED with any worsening symptoms and/or development of fever, headache, chest pain, palpitations, syncope, shortness of breath, trouble breathing, abdominal pain, n/v/d, blood in stool/urine, loss of control of bowel/bladder, urinary retention, muscle weakness/paralysis, saddle anesthesia, numbness/tingling, or other worsening symptoms that are concerning to you. Prescriptions: Prednisone [Deltasone 10 mg Tablet] 10 mg PO DAILY #18 tablet Forms: Elevated Blood Pressure Referrals: MAL MACHADO MD [Primary Care Provider] - Follow up as needed [facility] [Provider Group] - Follow up as needed
== END 2019-03-28 13:42 | disposition home or self-care (01) ==
LOC: ER 12:27
DX: M54.2 Cervicalgia (principal); G89.29 Other chronic pain; I10 Essential (primary) hypertension
CPT/HCPCS: 99283; 96372; J1885

== ENCOUNTER 2019-06-18 14:10 | Emergency (ER) | payer OTHER ==
--- NOTE | 2019-06-18 14:27 | ER Document Report ---
ED Medical Screen (RME) - General Chief Complaint: Medication Refill Stated Complaint: MEDICATION WITHDRAWL Time Seen by Provider: 06/18/19 14:18 Primary Care Provider: MAL MACHADO MD [Primary Care Provider] - Follow up as needed Mode of Arrival: Ambulatory Information source: Patient Notes: 48-year-old female presented to ED for complaint of nausea diarrhea agitation fatigue and chills. She states that about 3 to [address] Machado put her on tramadol for a sore shoulder. She states she then went to [place] where they did the MRI and told her to continue taking her medication. She states she has been taking the tramadol every 6 hours until about a week ago when she decided to stop taking it. She states she stopped all of a sudden and then she became nauseated agitated fatigued with diarrhea and cold chills. She states yesterday she took a whole tramadol and today she took 1:30 and then another 1:30 and the symptoms were little better but she only has 3 pills left and she needs to get off of the medicine she does not want to stay on it. She is also on Effexor and stopping the tramadol feels the way she does when she does not take her Effexor. I have greeted and performed a rapid initial assessment of this patient. A comprehensive ED assessment and evaluation of the patient, analysis of test results and completion of medical decision making process will be conducted by an additional ED providers. TRAVEL OUTSIDE OF THE [place] IN LAST 30 DAYS: No Past Medical History - Past Medical History Cardiac Medical History: Reports: Hx Hypertension Neurological Medical History: Reports: Hx Migraine Renal/ Medical History: Denies: Hx Peritoneal Dialysis Psychiatric Medical History: Reports: Hx Depression Past Surgical History: Reports: Hx Section, Hx Cholecystectomy, Hx Orthopedic Surgery - rods- right leg - Immunizations Hx Diphtheria, Pertussis, Tetanus Vaccination: Yes Physical Exam - Vital signs Vitals: Temp Pulse Resp BP Pulse Ox 98.1 F 81 18 185/95 H 97 06/18/19 14:12 06/18/19 14:12 06/18/19 14:12 06/18/19 14:12 06/18/19 14:12 Course - Vital Signs Vital signs: Temp Pulse Resp BP Pulse Ox 98.1 F 81 18 185/95 H 97 06/18/19 14:12 06/18/19 14:12 06/18/19 14:12 06/18/19 14:12 06/18/19 14:12 Doctor's Discharge - Discharge Referrals: MAL MACHADO MD [Primary Care Provider] - Follow up as needed
[2019-06-18 15:01] LABS: ABSOLUTE EOSINOPHILS # (AUTO) 0.1 10^3/uL (0.0-0.6); ABSOLUTE LYMPHOCYTES (AUTO) 1.5 10^3/uL (0.5-4.7); ABSOLUTE MONOCYTES (AUTO) 0.6 10^3/uL (0.1-1.4); ABSOLUTE NEUT (AUTO) 4.8 10^3/uL (1.7-8.2); BASOPHILS % (AUTO) 0.6 % (0-2); EOSINOPHILS % (AUTO) 2.1 % (0-6); HEMOGLOBIN 13.5 g/dL (12.0-15.5); LYMPHOCYTES % (AUTO) 21.1 % (13-45); MEAN CORPUSCULAR HEMOGLOBIN 31.9 pg (27.0-33.4); MEAN CORPUSCULAR HGB CONC 34.7 g/dL (32.0-36.0); MEAN CORPUSCULAR VOLUME 92 fl (80-97); MONOCYTES % (AUTO) 8.4 % (3-13); PLATELET COUNT 292 10^3/uL (150-450); RED BLOOD COUNT 4.24 10^6/uL (3.72-5.28); RED CELL DISTRIBUTION WIDTH 13.2 % (11.5-14.0); SEGMENTED NEUTROPHILS % (AUTO) 67.8 % (42-78); TOTAL CELLS COUNTED % (AUTO) 100 %
[2019-06-18 15:03] LABS: APPEARANCE,URINE SLIGHTLY-CLOUDY; BILIRUBIN,URINE NEGATIVE (NEGATIVE); COLOR,URINE YELLOW; GLUCOSE, URINE NEGATIVE (NEGATIVE); KETONES,URINE NEGATIVE (NEGATIVE); PROTEIN,URINE 30 mg/dL (NEGATIVE); URINE SPECIFIC GRAVITY 1.032; UROBILINOGEN,URINE NEGATIVE mg/dL (<2.0)
[2019-06-18 15:24] LABS: URINE AMPHETAMINES SCREEN NEGATIVE; URINE BARBITURATES SCREEN NEGATIVE; URINE BENZODIAZEPINES SCREEN NEGATIVE; URINE COCAINE SCREEN NEGATIVE; URINE MARIJUANA (THC) SCREEN NEGATIVE; URINE METHADONE SCREEN NEGATIVE; URINE PHENCYCLIDINE SCREEN NEGATIVE
[2019-06-18 15:26] LABS: ALBUMIN 4.6 g/dL (3.5-5.0); ALKALINE PHOSPHATASE 71 U/L (38-126); ANION GAP 11 (5-19); ASPARTATE AMINO TRANSFERASE 25 U/L (14-36); BILIRUBIN,DIRECT 0.3 mg/dL (0.0-0.4); BILIRUBIN,TOTAL 0.5 mg/dL (0.2-1.3); BLOOD UREA NITROGEN 14 mg/dL (7-20); CALCIUM 9.8 mg/dL (8.4-10.2); CARBON DIOXIDE 25 mmol/L (22-30); CHLORIDE 106 mmol/L (98-107); GLUCOSE 98 mg/dL (75-110); POTASSIUM 3.8 mmol/L (3.6-5.0); TOTAL PROTEIN 7.3 g/dL (6.3-8.2)
--- NOTE | 2019-06-18 15:43 | ER Document Report ---
ED General - General Chief Complaint: Medication Refill Stated Complaint: MEDICATION WITHDRAWL Time Seen by Provider: 06/18/19 14:18 Primary Care Provider: MAL MACHADO MD [Primary Care Provider] - Follow up as needed Mode of Arrival: Ambulatory Notes: Patient is a 48-year-old female who presents to the emergency department for possible opioid withdrawals. She has a history of shoulder pain and has been on tramadol for 4 months. Patient states that she was prescribed tramadol , 1 to 2 tablets every 6 hours as needed for her pain, but she was taking 2 tablets every 6 hours as and has 3 tablets left. Patient states that she originally did not want to be on tramadol for her shoulder pain. States that she had cut back this past week because she realized she was not taking them how they should be taken. Patient states, "I just do not feel right. It feels like I have been off my Effexor, but I have been taking it regularly." She is currently on gabapentin and diclofenac. Admits to some associated nausea. TRAVEL OUTSIDE OF THE [place] IN LAST 30 DAYS: No Past Medical History - General Information source: Patient - Social History Smoking Status: Never Smoker Family History: Reviewed & Not Pertinent Patient has suicidal ideation: No Patient has homicidal ideation: No - Past Medical History Cardiac Medical History: Reports: Hx Hypertension Neurological Medical History: Reports: Hx Migraine Renal/ Medical History: Denies: Hx Peritoneal Dialysis Psychiatric Medical History: Reports: Hx Depression Past Surgical History: Reports: Hx Section, Hx Cholecystectomy, Hx Orthopedic Surgery - rods- right leg - Immunizations Hx Diphtheria, Pertussis, Tetanus Vaccination: Yes Review of Systems - Review of Systems Notes: REVIEW OF SYSTEMS: CONSTITUTIONAL : Denies recent illness. Denies recent unintentional weight loss. Denies fever, chills, or sweats. EENT: Denies eye, ear, throat, or mouth pain, discharge, or symptoms. Denies nasal or sinus congestion. CARDIOVASCULAR: Denies chest pain. RESPIRATORY: Denies shortness of breath, cough, congestion, difficulty breathing, or wheezing. GASTROINTESTINAL: GENITOURINARY: Denies difficulty urinating, burning, blood in urine, urgency or frequency. MUSCULOSKELETAL: Denies neck and back pain. Denies joint pain or swelling. SKIN: Denies rash, itchiness, or lesions HEMATOLOGIC : Denies easy bruising or bleeding. LYMPHATIC: Denies swollen, painful, enlarged glands. NEUROLOGICAL: Denies no numbness or tingling denies weakness. Denies headache. Denies altered mental status. Denies alteration in speech. PSYCHIATRIC: Denies stress, anxiety, alteration in sleep patterns, or depression. All other systems reviewed and negative. Physical Exam - Vital signs Vitals: Temp Pulse Resp BP Pulse Ox 98.1 F 81 18 185/95 H 97 06/18/19 14:12 06/18/19 14:12 06/18/19 14:12 06/18/19 14:12 06/18/19 14:12 - Notes Notes: PHYSICAL EXAMINATION: GENERAL: Appears well, healthy, well-nourished, no acute distress. HEAD: Normocephalic, atraumatic. EYES: PERRL, conjunctiva normal, all extraocular movements intact, sclera n onicteric ENT: Moist mucous membranes. NECK: Supple, no noticeable swelling, redness, rash. Normal range of motion. LUNGS: Equal breath sounds bilaterally and clear to auscultation. No wheezes rales or rhonchi. CARDIOVASCULAR: S1-S2, regular rate, regular rhythm. Radial pulses 2+, normal. ABDOMEN: Normoactive bowel sounds. Soft, nontender, no guarding, no rebound tenderness, and no masses palpated. EXTREMITIES: Normal strength and range of motion, no pitting or edema. No cyanosis. NEUROLOGICAL: Moves all extremities upon command. Strength 5/5 in all extremities. PSYCH: Normal mood, normal affect. SKIN: Warm, dry. No rash, lesions, ulcerations noted. Normal skin turgor. Course - Re-evaluation Re-evalutation: 06/18/19 16:12 Hematology and chemistries are unremarkable. hCG ordered in triage is negative. Urinalysis shows protein in the urine, consistent with mild dehydration. Toxicology is negative. At this time, patient will be sent home with symptom control. Blood pressure rechecked and no indication for clonidine patch at this time. Patient is currently on blood pressure medication. She will follow-up with her primary care provider. Follow-up precautions were given. Verbal discharge instructions were given to the patient. They verbalized understanding. They are stable for discharge. - Vital Signs Vital signs: Temp Pulse Resp BP Pulse Ox 98.6 F 69 18 147/95 H 100 06/18/19 16:17 06/18/19 16:17 06/18/19 16:17 06/18/19 16:17 06/18/19 16:17 - Laboratory Result Diagrams: 06/18/19 14:39 06/18/19 14:39 Laboratory results interpreted by me: 06/18/19 14:39 Urine Protein 30 H Discharge - Discharge Clinical Impression: Opioid withdrawal Condition: Stable Disposition: HOME, SELF-CARE Additional Instructions: You were seen today in the emergency department for opioid withdrawals. Please take Zofran as needed for nausea and vomiting. Take 1 tablet every day. Prescriptions: Ondansetron [Zofran Odt 4 mg Tablet] 1 - 2 tab PO Q4H PRN #30 tab.rapdis PRN Reason: For Nausea/Vomiting Referrals: MAL MACHADO MD [Primary Care Provider] - Follow up as needed
[2019-06-18 16:24] VITALS: BP 147/95
== END 2019-06-18 16:26 | disposition home or self-care (01) ==
LOC: ER 14:10
DX: F11.23 Opioid dependence with withdrawal (principal); R11.0 Nausea; R80.9 Proteinuria, unspecified; I10 Essential (primary) hypertension; F32.9 Major depressive disorder, single episode, unspecified; M25.519 Pain in unspecified shoulder; G43.909 Migraine, unspecified, not intractable, without status migrainosus; Z79.1 Long term (current) use of non-steroidal anti-inflammatories (NSAID); Z79.899 Other long term (current) drug therapy
CPT/HCPCS: 36415; 80053; 80307; 81001; 84703; 85025; 99284

== ENCOUNTER 2019-11-12 14:04 | Emergency (ER) | payer SELFPAY ==
[2019-11-12] MEDS ORDERED: ASPIRIN 81 MG TABLET, CHEWABLE PO ONE (15:05)
--- NOTE | 2019-11-12 15:08 | ER Document Report ---
ED Medical Screen (RME) - General Chief Complaint: Shortness Of Breath Stated Complaint: CHEST PAIN,SHORT OF BREATH Time Seen by Provider: 11/12/19 15:04 Primary Care Provider: MAL MACHADO MD [Primary Care Provider] - Follow up as needed Mode of Arrival: Wheelchair Information source: Patient Notes: 49-year-old female presented to ED for complaint of chest pain x2 with constant pressure with shortness of breath x2 weeks. She did have a covered test last week that was negative. She does have a history of rheumatoid arthritis high blood pressure and hypothyroidism. She states she also has elevated A1c and they are planning to start treatment for diabetes. I have greeted and performed a rapid initial assessment of this patient. A comprehensive ED assessment and evaluation of the patient, analysis of test results and completion of medical decision making process will be conducted by an additional ED providers. TRAVEL OUTSIDE OF THE [place] IN LAST 30 DAYS: No - Related Data Allergies/Adverse Reactions: No Known Allergies Allergy (Unverified 11/12/19 14:56) Home Medications: gabapentin, hydroxychloroquine, hctz, lisinopril, venlafaxine, synthroid, trazadone, diclofenac Past Medical History - Past Medical History Cardiac Medical History: Reports: Hx Hypertension Neurological Medical History: Reports: Hx Migraine Renal/ Medical History: Denies: Hx Peritoneal Dialysis Psychiatric Medical History: Reports: Hx Depression Past Surgical History: Reports: Hx Section, Hx Cholecystectomy, Hx Orthopedic Surgery - rods- right leg - Immunizations Hx Diphtheria, Pertussis, Tetanus Vaccination: Yes Physical Exam - Vital signs Vitals: Temp Pulse Resp BP Pulse Ox 99.1 F 69 18 108/63 100 11/12/19 14:20 11/12/19 14:20 11/12/19 14:20 11/12/19 14:20 11/12/19 14:20 Course - Vital Signs Vital signs: Temp Pulse Resp BP Pulse Ox 99.1 F 69 18 108/63 100 11/12/19 14:20 11/12/19 14:20 11/12/19 14:20 11/12/19 14:20 11/12/19 14:20 Doctor's Discharge - Discharge Referrals: MAL MACHADO MD [Primary Care Provider] - Follow up as needed
--- NOTE | 2019-11-12 15:13 | EKG REPORT ---
SEVERITY:- BORDERLINE ECG - SINUS RHYTHM : Confirmed by: Yeyo Carson MD 12-Nov-2019 15:12:07
--- NOTE | 2019-11-12 15:42 | RADIOLOGY REPORT (SQ) ---
EXAM DESCRIPTION: CHEST 2 VIEWS IMAGES COMPLETED DATE/TIME: 11/12/2019 3:31 pm REASON FOR STUDY: Chest pain shortness of breath COMPARISON: None. EXAM PARAMETERS: NUMBER OF VIEWS: two views TECHNIQUE: Digital Frontal and Lateral radiographic views of the chest acquired. RADIATION DOSE: NA LIMITATIONS: none FINDINGS: LUNGS AND PLEURA: No opacities, masses or pneumothorax. No pleural effusion. MEDIASTINUM AND HILAR STRUCTURES: No masses or contour abnormalities. HEART AND VASCULAR STRUCTURES: Heart normal size. No evidence for failure. BONES: No acute findings. HARDWARE: None in the chest. OTHER: No other significant finding. IMPRESSION: NO ACUTE RADIOGRAPHIC FINDING IN THE CHEST. TECHNICAL DOCUMENTATION: JOB ID: [id number] 2010 [employer]- All Rights Reserved Reading location - IP/workstation name: [email or web address]
[2019-11-12 15:48] LABS: ABSOLUTE EOSINOPHILS # (AUTO) 0.3 10^3/uL (0.0-0.6); ABSOLUTE LYMPHOCYTES (AUTO) 1.3 10^3/uL (0.5-4.7); ABSOLUTE MONOCYTES (AUTO) 0.6 10^3/uL (0.1-1.4); ABSOLUTE NEUT (AUTO) 4.3 10^3/uL (1.7-8.2); BASOPHILS % (AUTO) 0.4 % (0-2); EOSINOPHILS % (AUTO) 4.2 % (0-6); HEMATOCRIT 37.6 % (36.0-47.0); HEMOGLOBIN 12.9 g/dL (12.0-15.5); LYMPHOCYTES % (AUTO) 20.2 % (13-45); MEAN CORPUSCULAR HEMOGLOBIN 32.6 pg (27.0-33.4); MEAN CORPUSCULAR HGB CONC 34.4 g/dL (32.0-36.0); MEAN CORPUSCULAR VOLUME 95 fl (80-97); PLATELET COUNT 258 10^3/uL (150-450); RED BLOOD COUNT 3.97 10^6/uL (3.72-5.28); RED CELL DISTRIBUTION WIDTH 13.3 % (11.5-14.0); SEGMENTED NEUTROPHILS % (AUTO) 66.2 % (42-78); TOTAL CELLS COUNTED % (AUTO) 100 %; WHITE BLOOD COUNT 6.5 10^3/uL (4.0-10.5)
[2019-11-12 16:05] LABS: ALBUMIN 4.7 g/dL (3.5-5.0); ALKALINE PHOSPHATASE 55 U/L (38-126); ANION GAP 7 (5-19); ASPARTATE AMINO TRANSFERASE 24 U/L (14-36); BILIRUBIN,TOTAL 0.5 mg/dL (0.2-1.3); BLOOD UREA NITROGEN 22 mg/dL (7-20); CALCIUM 9.7 mg/dL (8.4-10.2); CARBON DIOXIDE 27 mmol/L (22-30); CHLORIDE 104 mmol/L (98-107); CREATINE KINASE 83 U/L (30-135); GLUCOSE 94 mg/dL (75-110); POTASSIUM 4.4 mmol/L (3.6-5.0); TOTAL PROTEIN 7.2 g/dL (6.3-8.2)
--- NOTE | 2019-11-12 18:16 | ER Document Report ---
ED Cardiac - General Chief Complaint: Chest Pain Stated Complaint: CHEST PAIN,SHORT OF BREATH Time Seen by Provider: 11/12/19 15:04 Primary Care Provider: MAL MACHADO MD [Primary Care Provider] - Follow up tomorrow (Call tomorrow for an outpatient follow-up appointment.) Mode of Arrival: Wheelchair TRAVEL OUTSIDE OF THE [place] IN LAST 30 DAYS: No - Related Data Allergies/Adverse Reactions: No Known Allergies Allergy (Unverified 11/12/19 14:56) Home Medications: gabapentin, hydroxychloroquine, hctz, lisinopril, venlafaxine, synthroid, trazadone, diclofenac Past Medical History - General Information source: Patient - Social History Smoking Status: Never Smoker Chew tobacco use (# tins/day): No Frequency of alcohol use: None Drug Abuse: None Family History: Reviewed & Not Pertinent Patient has homicidal ideation: No - Past Medical History Cardiac Medical History: Reports: Hx Hypertension Neurological Medical History: Reports: Hx Migraine Renal/ Medical History: Denies: Hx Peritoneal Dialysis Psychiatric Medical History: Reports: Hx Depression Past Surgical History: Reports: Hx Section, Hx Cholecystectomy, Hx Orthopedic Surgery - rods- right leg - Immunizations Hx Diphtheria, Pertussis, Tetanus Vaccination: Yes Physical Exam - Vital signs Vitals: Temp Pulse Resp BP Pulse Ox 99.1 F 69 18 108/63 100 11/12/19 14:20 11/12/19 14:20 11/12/19 14:20 11/12/19 14:20 11/12/19 14:20 - Notes Notes: VITAL SIGNS: Within normal limits. GENERAL: No acute distress, non-toxic appearance. HEAD: Normal with no signs of head trauma. EYES: PERRLA, EOMI, conjunctiva normal, no discharge. EARS: Hearing grossly intact. NOSE: Normal. THROAT: Oropharynx is normal. NECK: Normal range of motion, no tenderness, supple, no lymphadenopathy, No adenopathy, no JVD. CHEST: Clear breath sounds bilaterally. No wheezes, rales, or rhonchi. Tenderness on palpation over the sternum. No obvious deformity noted. CARDIAC: Regular rate and rhythm. S1 and S2, without murmurs, gallops, or rubs. VASCULAR: No Edema. Peripheral pulses normal and equal in all extremities. ABDOMEN: Normal and soft with no tenderness, no masses or pulsatile masses. GASTROINTESTINAL: Bowel sounds normal GENITOURINARY: Normal, No tenderness LYMPATHTIC: No lymphadenopathy noted. MUSCULOSKELETAL: Good range of motion of all major joints. Extremities without clubbing, cyanosis or edema. NEUROLOGICAL: Alert and oriented x 3. No focal sensory or strength deficits. Speech normal. Follows commands appropriately. PSYCHIATRIC: Normal Affect, judgement and mood. SKIN: Normal appearance with no rashes or lesions. Course - Re-evaluation Re-evalutation: 11/12/19 18:55 HEART Score: History 0 ECG 0 Age 1 Risk Factors 2 Troponin 0 Total: 3 If HEART score is = 3 AND both tronponin measurments are normal, the 30 day risk of a major adverse cardiac event (all-cause mortality, myocardia infarction or need for coronary revscularization) is < 1% (Sensitivity 100%, NPV 100%). Chest pain in a patient without evidence of cardiac or other serious etiology on workup today. I discussed with patient that, based on their age, risk factors and emergency department testing today, the likelihood that their symptoms are related to a heart attack is very low (estimated risk of heart attack or over the next 30 days of less than 1%). The patient demonstrates decision making capacity and has verbalized an understanding of these risks to me. Based on this, the patient has chosen to follow-up as an outpatient. Usual chest pain return precautions reviewed. The patient states understanding and agreement with this plan. 11/12/19 20:20 Patient is resting comfortably she is pain-free. Reviewed all test results with patient. Counseled need to follow-up outpatient with her primary care physician. Patient was given strict return to the emergency room guidelines. Return for any new or worsening symptoms. All questions were answered. Patient verbalized understanding and agrees with plan of care. - Vital Signs Vital signs: Temp Pulse Resp BP Pulse Ox 99.1 F 69 23 H 109/69 91 L 11/12/19 14:20 11/12/19 14:20 11/12/19 19:01 11/12/19 19:01 11/12/19 19:01 - Laboratory Result Diagrams: 11/12/19 15:20 11/12/19 15:20 Laboratory results interpreted by me: 11/12/19 15:20 BUN 22 H Est GFR (MDRD) Non-Af 57 L Magnesium 2.4 H - Diagnostic Test Radiology reviewed: Reports reviewed - EKG Interpretation by Me EKG shows normal: Sinus rhythm Rate: Normal Rhythm: NSR Additional EKG results interpreted by me: 11/12/19 18:15 EKG interpreted by ER physician Dr. Adamson No acute STEMI Normal sinus rhythm Rate of [address] [place] [address] changes Discharge - Discharge Clinical Impression: Chest pain of unknown etiology Dyspnea Qualifiers: Dyspnea type: unspecified Qualified Code(s): R06.00 - Dyspnea, unspecified Condition: Stable Disposition: HOME, SELF-CARE Instructions: Chest Wall Pain ([facility]), Chest Pain of Unclear Cause ([facility]), Dyspnea, Nonspecific ([facility]) Additional Instructions: Continue current home medications. Call your primary care physician for an outpatient follow-up appointment. Return to the emergency room for any new or worsening symptoms. Referrals: MAL MACHADO MD [Primary Care Provider] - Follow up tomorrow (Call tomorrow for an outpatient follow-up appointment.)
[2019-11-12 19:40] LABS: CREATINE KINASE MB 0.76 ng/mL (<4.55)
[2019-11-12 19:46] LABS: TROPONIN I < 0.012 ng/mL
[2019-11-12 21:35] VITALS: BP 97/67
== END 2019-11-12 21:30 | disposition home or self-care (01) ==
LOC: ER 14:04
DX: R07.9 Chest pain, unspecified (principal); R06.00 Dyspnea, unspecified; R06.02 Shortness of breath; Z79.899 Other long term (current) drug therapy; I10 Essential (primary) hypertension
CPT/HCPCS: 36415; 71046; 80053; 82550; 82553; 83690; 83735; 84443; 84484; 85025; 93005; 93010; 96376; 99285

== ENCOUNTER 2020-02-13 14:11 | Emergency (ER) | payer OTHER ==
[2020-02-13] MEDS ORDERED: ACETAMINOPHEN 325 MG TABLET PO ONE (14:29)
[2020-02-13] MEDS ORDERED: CYCLOBENZAPRINE HCL 10 MG TABLET PO ONE (14:29)
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
[2020-02-13 16:09] VITALS: BP 140/92
== END 2020-02-13 16:15 | disposition home or self-care (01) ==
LOC: ER 14:11
DX: S16.1XXA Strain of muscle, fascia and tendon at neck level, initial encounter (principal); M79.601 Pain in right arm; M50.30 Other cervical disc degeneration, unspecified cervical region; M25.512 Pain in left shoulder; M54.5 Low back pain; V87.7XXA Person injured in collision between other specified motor vehicles (traffic), initial encounter; I10 Essential (primary) hypertension
CPT/HCPCS: 72110; 72125; 99284